=== PATIENT | male | born 1985 | race African-American/Black ===

== ENCOUNTER 2018-08-17 19:47 | Emergency (ER) | payer MEDICAID ==
[~2018-08-17] VITALS: Ht 175.3 cm; Wt 77.0 kg
[2018-08-17] MEDS ORDERED: ACETAMINOPHEN WITH CODEINE 300/30MG TABLET PO ONE (20:45)
[2018-08-17] MEDS ORDERED: IBUPROFEN 800MG TABLET PO ONE (21:45)
[2018-08-17 22:03] VITALS: BP 135/78
== END 2018-08-17 22:05 | disposition home or self-care (01) ==
LOC: ER 19:47
DX: S20.212A Contusion of left front wall of thorax, initial encounter (principal); S60.221A Contusion of right hand, initial encounter; F12.10 Cannabis abuse, uncomplicated; V03.00XA Pedestrian on foot injured in collision with car, pick-up truck or van in nontraffic accident, initial encounter; Y93.89 Activity, other specified; Y92.488 Other paved roadways as the place of occurrence of the external cause
CPT/HCPCS: 71110; 73130; 99283

== ENCOUNTER 2018-08-30 09:59 | Emergency (ER) | payer MEDICAID ==
[~2018-08-30] VITALS: Ht 175.3 cm; Wt 75.0 kg
[2018-08-30] MEDS ORDERED: HYDROCODONE/ACETAMINOPHEN 5/325MG TABLET PO ONE (10:45)
[2018-08-30 11:22] VITALS: BP 138/82
== END 2018-08-30 11:26 | disposition home or self-care (01) ==
LOC: ER 09:59
DX: G89.29 Other chronic pain (principal); M25.532 Pain in left wrist; F12.10 Cannabis abuse, uncomplicated; Z87.828 Personal history of other (healed) physical injury and trauma
CPT/HCPCS: 29125; 99283

== ENCOUNTER 2018-08-30 19:05 | Emergency (ER) | payer MEDICAID ==
[~2018-08-30] VITALS: Ht 175.3 cm; Wt 78.0 kg
[2018-08-30 20:41] VITALS: BP 139/80
== END 2018-08-30 23:16 | disposition left against medical advice (07) ==
LOC: ER 19:05
DX: Z53.21 Procedure and treatment not carried out due to patient leaving prior to being seen by health care provider (principal)

== ENCOUNTER 2018-09-05 17:45 | Emergency (ER) | payer MEDICAID ==
[~2018-09-05] VITALS: Ht 175.3 cm; Wt 78.0 kg
[2018-09-05 20:15] VITALS: BP 113/81
[2018-09-05] MEDS ORDERED: HYDROCODONE/ACETAMINOPHEN 5/325MG TABLET PO ONE (20:15)
== END 2018-09-05 21:00 | disposition home or self-care (01) ==
LOC: ER 17:45
DX: M25.531 Pain in right wrist (principal)
CPT/HCPCS: 99283